=== PATIENT | male | born 1990 | race Caucasian/White ===

== ENCOUNTER 2018-05-11 14:46 | Emergency (ER) | payer BC ==
[~2018-05-11] VITALS: Ht 180.3 cm; Wt 57.1 kg
[2018-05-11 17:45] VITALS: BP 121/84
== END 2018-05-11 17:45 | disposition left against medical advice (07) ==
LOC: ED 14:46
DX: R10.13 Epigastric pain (principal); R91.8 Other nonspecific abnormal finding of lung field; Q79.6 Ehlers-Danlos syndromes; M45.9 Ankylosing spondylitis of unspecified sites in spine

== ENCOUNTER 2018-05-24 11:45 | Emergency (ER) | payer BC ==
[~2018-05-24] VITALS: Ht 175.3 cm; Wt 55.4 kg
[2018-05-24 11:49] VITALS: Ht 175.3 cm; Wt 55.4 kg
[2018-05-24 12:26] LABS: CALCIUM 8.8 mg/dL (8.5-10.1); CARBON DIOXIDE 30.2 mmol/L (21-32); CHLORIDE SERUM 102 mmol/L (98-107); CREATININE SERUM 0.8 mg/dL (0.7-1.3); GFR1 > 60 mL/min; GLUCOSE SERUM 96 mg/dL (74-106); POTASSIUM SERUM 3.5 mmol/L (3.5-5.1); SODIUM SERUM 141 mmol/L (136-145)
[2018-05-24 12:31] LABS: ALBUMIN 3.5 g/dL (3.4-5.0); ALKALINE PHOSPHATASE 105 U/L (46-116); ALT/SGPT 29 U/L (16-63); AST/SGOT 15 U/L (15-37); BASOPHIL % 0.4 % (0-2); BILIRUBIN TOTAL 0.34 mg/dL (0.20-1.00); TOTAL PROTEIN, SERUM 7.7 g/dL (6.4-8.2)
[2018-05-24 13:06] LABS: PLATELET COUNT 556 x10^3mcL (130-400)
[2018-05-24 14:06] LABS: AMPHETAMINE QUAL UR NONE DETECTED (See below)
[2018-05-24 14:34] VITALS: BP 118/65
== END 2018-05-24 14:34 | disposition home or self-care (01) ==
LOC: ED 11:45
PROVIDERS: Emergency Medicine
DX: J18.9 Pneumonia, unspecified organism (principal); J45.909 Unspecified asthma, uncomplicated; Z88.1 Allergy status to other antibiotic agents
CPT/HCPCS: 36415; Q0092